=== PATIENT | male | born 1955 | race African-American/Black ===

== ENCOUNTER 2019-12-06 16:14 | Emergency (ER) | payer MEDICAID, OTHER, SELFPAY ==
[2019-12-06 16:58] VITALS: BP 147/90; PULSE 80; RESP 18; TEMP 36.7; O2SAT 98
--- NOTE | 2019-12-07 02:25 | ED.RECABL ---
HPI - Recheck/Abnormal Lab/Rx General Chief Complaint: Recheck/Abnormal Lab/Rx Stated Complaint: needs his medications refilled and primary care Source: patient Mode of arrival: Ambulatory Limitations: no limitations History of Present Illness HPI narrative: Patient Left without being seen. Patient History Social History Smoking Status: Current every day smoker Smoking Status: Current every day smoker alcohol intake frequency: a few times a month Substance Use Type: does not use Exam Initial Vital Signs Initial Vital Signs: Vital Signs Temperature 98.0 F 12/06/19 16:58 Pulse Rate 80 12/06/19 16:58 Respiratory Rate 18 12/06/19 16:58 Blood Pressure 147/90 H 12/06/19 16:58 Pulse Oximetry 98 12/06/19 16:58 Discharge Plan Departure Patient Disposition: Left Without Being Seen Clinical Impression: Patient left without being seen Discharge Date/Time: 12/06/19 19:20
== END 2019-12-06 19:20 | disposition left against medical advice (07) ==
PROVIDERS: Emergency Provider Emergency Medicine
CPT/HCPCS: 99281

== ENCOUNTER 2019-12-11 15:12 | Emergency (ER) | payer OTHER, MEDICAID, SELFPAY ==
[2019-12-11 15:44] VITALS: BP 150/87; PULSE 83; RESP 16; TEMP 36.5; O2SAT 95; BMI 27.8
--- NOTE | 2019-12-11 16:53 | ED_ITS ---
HPI - Recheck/Abnormal Lab/Rx <LILLY Moon - Last Filed: 12/11/19 20:46> General Chief Complaint: Recheck/Abnormal Lab/Rx Stated Complaint: Needs More Meds Time Seen by Provider: 12/11/19 16:31 Mode of arrival: Ambulatory History of Present Illness HPI narrative: 64yo male with a history of hypertension, high cholesterol, and rheumatoid arthritis, presents to the emergency department requesting a refill of his cardiac medications. He states he was seen in [place] few months ago but has not establish a primary care provider and he will be taking a drop appear for a few months. Patient denies any symptoms such as chest pain, shortness of breath, abdominal pain, joint pain, nausea, vomiting, diarrhea, fevers, chills, or other concerns. Related Data Home Medications Medication Instructions Recorded Confirmed folic acid 1 mg PO DAILY 12/11/19 12/11/19 hydroxychloroquine 200 mg PO BID 12/11/19 12/11/19 methotrexate sodium 12/11/19 prednisone 12/11/19 Previous Rx's Medication Instructions Recorded amlodipine 10 mg PO DAILY 30 Days #30 tab 12/11/19 amlodipine 10 mg PO DAILY 30 Days #30 tab 12/11/19 Allergies Allergy/AdvReac Type Severity Reaction Status Date / Time No Known Drug Allergies Allergy Verified 12/11/19 15:50 Review of Systems <LILLY Moon - Last Filed: 12/11/19 20:46> Review of Systems Narrative: REVIEW OF SYSTEMS: GENERAL: Denies fever or chills. HENT: No head trauma, hearing loss or sore throat. EYES: No loss of vision, double vision, eye pain, or irritation. CARDIOVASCULAR: No chest pain or syncope. RESPIRATORY: No shortness of breath or cough. GASTROINTESTINAL: No nausea, vomiting, diarrhea, or constipation. GENITOURINARY: No flank pain or dysuria. MUSCULOSKELETAL: No pain, weakness, or deformities. INTEGUMENTARY: No rash, lesions, or pruritus. NEURO: No numbness, tingling, memory loss, or confusion. PSYCH: No behavior or mood changes. Patient History <LILLY Moon - Last Filed: 12/11/19 20:46> Medical History Hypertension (Acute) Social History Smoking Status: Current every day smoker Smoking Status: Current every day smoker alcohol intake frequency: a few times a month Substance Use Type: does not use Exam <LILLY Moon - Last Filed: 12/11/19 20:46> Initial Vital Signs Initial Vital Signs: Vital Signs Temperature 97.7 F 12/11/19 15:44 Pulse Rate 83 12/11/19 15:44 Respiratory Rate 16 12/11/19 15:44 Blood Pressure 150/87 H 12/11/19 15:44 Pulse Oximetry 95 12/11/19 15:44 PHYSICAL EXAMINATION: GENERAL: Well groomed, alert, and cooperative. Answers questions promptly and appropriately. Vital signs noted. HENT: Normocephalic, atraumatic. Ear canals patent. Oral mucosa is pink and moist. EYES: Conjunctiva pink, sclera white, no periorbital swelling. CARDIOVASCULAR: Regular rate. RESPIRATORY: Normal respiratory rate, trachea midline, airway patent. No stridor, nasal flaring or accessory muscle use. MUSCULOSKELETAL: Normal gait and coordination. Equal tone and mass bilaterally. EXTREMITIES: Moves all extremities. SKIN: Warm, dry, soft, appropriate color for ethnicity. No lesions, rashes, or wounds. NEURO: Alert and Oriented X 3. Good coordination. No ataxia, or sensory deficits, or cognitive issues. PSYCH: Appropriate affect and mood. <Juan J Travis DO - Last Filed: 12/11/19 20:47> Initial Vital Signs Initial Vital Signs: Vital Signs Temperature 97.7 F 12/11/19 15:44 Pulse Rate 83 12/11/19 15:44 Respiratory Rate 16 12/11/19 15:44 Blood Pressure 150/87 H 12/11/19 15:44 Pulse Oximetry 95 12/11/19 15:44 Course <LILLY Moon - Last Filed: 12/11/19 20:46> Course Course Narrative: Our pharmacy innovation assistant called the pharmacy to check for recent medications at [facility] and his recent pharmacy in [place], only his prednisone and methotrexate were validated via pharmacies. No blood pressure medication, cardiac medication, or HLD medication was identified. However, patient is very much requesting a refill on his amlodipine, this was identified on discharge instructions that were given to him by his liner replacer. Vital Signs Vital signs: Vital Signs - 8 hr 12/11/19 15:44 12/11/19 17:45 Temperature 97.7 F Pulse Rate 83 70 Respiratory Rate 16 18 Blood Pressure 150/87 H Blood Pressure [Left Arm] 148/75 H Pulse Oximetry 95 99 <Juan J Travis DO - Last Filed: 12/11/19 20:47> Vital Signs Vital signs: Vital Signs - 8 hr 12/11/19 15:44 12/11/19 17:45 Temperature 97.7 F Pulse Rate 83 70 Respiratory Rate 16 18 Blood Pressure 150/87 H Blood Pressure [Left Arm] 148/75 H Pulse Oximetry 95 99 MDM - Recheck/Abnormal Lab/Rx <LILLY Moon - Last Filed: 12/11/19 20:46> Medical Records Attestation: I reviewed the patient's medical records. Lab Data Attestation: I reviewed the patient's lab results. MDM Narrative Medical decision making narrative: This is a 64-year-old male appears to have history of RA, hypertension, and hyperlipidemia, presenting for refill on his m edications. He has a general list of medications without confirmation of which meds he is taking as he states summer given to him in the emergency department and summer switched, these were the medications that he told his stenotype machine operator he was taking. Does not have any primary care at this time. Patient is not sure what medications he takes on a daily basis or what medications he has discontinued. However, he was sure that he takes amlodipine. Amlodipine was filled, patient was encouraged to follow up with his primary care provider for medication management. I did not prescribe other medication as he had multiple cardiac medications on his list including metoprolol, furosemide, lisinopril, and amlodipine, I was unsure about the crust reactions with this medication and the impact on his blood pressure. His blood pressure was not excessive elevated at this visit. Patient agreed with plan of care and verbalized understanding Discharge Plan Departure Patient Disposition: Home Clinical Impression: Encounter for medication refill Discharge Date/Time: 12/11/19 17:49 Activity Restrictions/Additional Instructions: Thank you for entrusting me with your care today. As discussed, please make an appointment with a primary care provider. Your blood pressure medication was refilled. We discussed refilling arthritis medication but indicates that a follow-up appointment with your stenotype machine operator is need for refills, this medication often requires lab draws and can be harmful. Return emergency department for any new or worsening symptoms such as chest pain, shortness of breath, abdominal pain, syncope, or other concerns. Prescriptions: New amlodipine 10 mg tablet 10 mg PO DAILY 30 Days Qty: 30 RF: 0 amlodipine 10 mg tablet 10 mg PO DAILY 30 Days Qty: 30 RF: 0 No Action prednisone 5 mg tablet RF: 0 methotrexate sodium 2.5 mg tablet RF: 0 folic acid 1 mg tablet 1 mg PO DAILY RF: 0 hydroxychloroquine 200 mg tablet 200 mg PO BID RF: 0 <Juan J Travis, DO - Last Filed: 12/11/19 20:47> Sign Out Provider Sign Out Attestation: Dr Travis Co-Sign Statement: I was available for consultation during this patient's emergency department visit. This chart is signed by myself for administrative purposes only. I did not have direct contact with this patient during this visit. They were seen independently by the APC.
[2019-12-11 17:45] VITALS: BP 148/75; PULSE 70; RESP 18; O2SAT 99
== END 2019-12-11 17:49 | disposition home or self-care (01) ==
PROVIDERS: Emergency Provider Nurse Practitioner
DX: Z76.0 Encounter for issue of repeat prescription (principal); I10 Essential (primary) hypertension
CPT/HCPCS: 99281; 99283